=== PATIENT | female | born 1940 | race Caucasian/White ===

== ENCOUNTER 2024-09-12 08:25 | Outpatient (CLI) | payer MEDICARE, OTHER ==
--- NOTE | 2024-09-12 11:39 | RADIOLOGY REPORT ---
Indication: GROSS HEMATURIA,URINARY CALCULUS Technique: CT axial images of the abdomen and pelvis are obtained without contrast. Coronal and sagit stanford reformats were obtained. Radiation Dose Information: CTDI volume is 5.2 mGy. Dose-length product is 242 mGy*cm Comparison: None FINDINGS: There is limited interpretation of the abdomen and pelvis without administration of intravenous contr ast. Loculated and peripherally calcified left pleural collection. Left lung volume loss. Mediastinal sh ift to the left. Right lower lobe pulmonary tree-in-bud nodularity. Pulmonary emphysematous changes. Adrenal glands unremarkable in shape. Splenic calcifications consistent with remote granulomatous di sease. Pancreatic parenchymal atrophy. Liver unremarkable in shape. No CT evidence for cholelithias is. Kidneys demonstrate no hydronephrosis. Right renal cyst measuring 7.6 cm. Right renal pelvic calculus measuring 1.4 cm. Mild right hydronephrosis. Left kidney demonstrates no hydronephrosis or nephrolithiasis. Left renal cyst measuring up to 1.8 c m. Stomach is partially distended. The small bowel loops are moderately distended with fecal like krishna nts. Moderate to large volume stool in the colon. No secondary signs for appendicitis. Abdominal aortic atherosclerotic disease. Dilatation of the mid abdominal aorta 2.4 cm. Bladder is p artially distended. Trace free pelvic fluid. No inguinal lymphadenopathy. Soft tissue edema / anasarca. [id number] bilateral sacroiliac degenerative joint disease. Moderate to advanced bilateral hip degenerative changes. Moderate to advanced lumbar degenerative disc disease and facet hypertrophic c hanges. IMPRESSION: 1. Right renal pelvic calculus measuring 1.4 cm resulting in mild right hydronephrosis. 2. Left lung volume loss. Left pleural encapsulated collection/ lesion with peripheral calcification s. 3. Right lower lobe tree-in-bud nodularity which can be secondary to atypical infection, aspiration, bronchiolitis, miliary spread carcinoma. 4. Pulmonary emphysematous changes. 5. Moderate volume stool within the colon. Fecal like contents within the small bowel which can be s econdary to ileus/hypomotility. 6. Atherosclerotic disease. Dilatation mid abdominal aorta to 2.4 cm 7. Other findings as described.
== END 2024-09-12 23:59 | disposition home or self-care (01) ==
LOC: RAD 08:25
PROVIDERS: ATTEND Specialist
DX: N20.0 Calculus of kidney (principal); J43.9 Emphysema, unspecified; R31.0 Gross hematuria; I25.10 Atherosclerotic heart disease of native coronary artery without angina pectoris
CPT/HCPCS: 74176

== ENCOUNTER 2024-11-26 10:25 | Outpatient (CLI) | payer MEDICARE, OTHER ==
[~2024-11-26 10:25] MED LIST: LEVO88TA7 PO; PRAV40TA3 PO; iohexol 300mg/ml 100ml inj. ONE
--- NOTE | 2024-11-27 05:21 | RADIOLOGY REPORT ---
Procedure: CT CT CHEST W/ IV CONTRAST 11/26/2024 12:00 PM History: NONSPECIFIC ABNORMAL FINDING OF LUNG FIELD Comparison: None Technique: After the uneventful administration of contrast intravenously, CT imaging was performed th rough the chest. Coronal and sagittal reformations were performed by the technologist. 3D image postprocessing was performed on a dedicated workstation and images were used for interpretat ion and reporting. Radiation Dose : CT Dose: CTDI volume is 5.9 mGy. Dose-length product is 463 mGy*cm Findings: Lower neck: Normal thyroid. Lungs: Left pneumonectomy. Moderate centrilobular emphysema. Scarring versus spiculated nodule in the right lung apex measures 0.8 cm, image 10. 0.5 cm nodule in the right upper lobe, image 38. 0.4 cm nodule in the right upper lobe, image 43. Heart/Vascular Structures: Cardiomegaly. Coronary artery calcifications. Vascular calcifications of t he aorta. Lymph Nodes: No adenopathy Pleura: Left pneumonectomy. Small volume fluid in the left pleural space and diffuse left pleural pe ripheral calcifications. Small right pleural effusion. Musculoskeletal: No acute osseous abnormality. Multilevel degenerative changes of the spine. Soft tissues: Normal. Upper abdomen: Limited portions of the upper abdomen are unremarkable. IMPRESSION: Left pneumonectomy. Moderate centrilobular emphysema. Scarring versus spiculated nodule in the right lung apex measures 0.8 cm, image 10. 0.5 cm nodule in the right upper lobe, image 38. 0.4 cm nodule in the right upper lobe, image 43. Fleischner Society pulmonary nodule recommendations (2017): Single solid nodule <6 mm Low-risk patients: no routine follow-up required High-risk patients: optional CT at 12 months (particularly with suspicious nodule morphology and/or upper lobe location) Solitary solid nodule 6-8 mm Low-risk patients: CT at 6-12 months, then consider CT at 18-24 months High-risk patients: CT at 6-12 months, then CT at 18-24 months Solitary solid nodule >8 mm (>250 mm3) Low-risk and high-risk patients: consider CT at 3 months, PET/CT, or tissue sampling Multiple solid nodules <6 mm Low-risk patients: no routine follow-up required High-risk patients: optional CT at 12 months Multiple solid nodules >6 mm Low-risk patients: CT at 3-6 months, then consider CT at 18-24 months High-risk patients: CT at 3-6 months, then CT at 18-24 months When multiple nodules are present, the most suspicious nodule should guide further individualized management. Solitary groundglass opacities < 6 mm require no follow-up Multiple groundglass opacities < 6 mm: CT 3-6 months. If stable consider CT at 2 , and 4 years Groundglass opacities >6 mm: follow-up in 6-12 months and then every 2 years for 5 years. Groundglass opacities greater than 6 mm with part solid component follow-up CT in 3-6 months to confirm persistence. If unchanged and solid component remains less than [address] for 5 years Multiple groundglass opacities greater than 6 mm: CT at 3-6 months. Subsequent management based on the most suspicious nodules. These recommendations do not necessarily apply to women, patients with immunosuppression or a prior history of cancer, patients with multiple nodules that are suspicious for metastasis or infection, or patients with mediastinal lymphadenopathy or pleural effusion in whom cancer is strongly suspected.
== END 2024-11-26 23:59 | disposition home or self-care (01) ==
LOC: RAD 10:25
PROVIDERS: ATTEND Specialist
DX: R91.8 Other nonspecific abnormal finding of lung field (principal); Z90.2 Acquired absence of lung [part of]; Z85.118 Personal history of other malignant neoplasm of bronchus and lung; J43.2 Centrilobular emphysema; J90 Pleural effusion, not elsewhere classified; I51.7 Cardiomegaly; I25.10 Atherosclerotic heart disease of native coronary artery without angina pectoris; M47.814 Spondylosis without myelopathy or radiculopathy, thoracic region
CPT/HCPCS: 71270; Q9967